=== PATIENT | female | born 1990 | race African-American/Black ===

== ENCOUNTER → 2019-05-23 | Emergency (ER) | payer MEDICAID ==
[~2019-05-23] VITALS: Ht 172.7 cm; Wt 71.2 kg
[~2019-05-23] MED LIST: Acetaminophen 500mg (ES) tab ORAL ONE; IBUPROFEN600 MG ORAL; LIDODERM700 M1 TOPIC; ROBAXIN-750750 MG PO; TYLENOL325 MG ORAL
[2019-05-23 13:50] VITALS: BP 112/72
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
[2019-05-23 14:10] VITALS: BP 112/72
--- NOTE | 2019-05-23 14:10 | NUR ---
ER DISCHARGE NOTE: Patient is cleared to be discharged per ERMD, pt is aox4, on room air, with stable vital signs. pt was given dc and prescription instructions, pt was able to verbalize understanding, pt id band removed. pt is able to ambulate with steady gait. pt took all belongings.
== END | disposition home or self-care (01) ==
LOC: EMR 13:50
DX: S30.0XXA Contusion of lower back and pelvis, initial encounter (principal); V49.40XA Driver injured in collision with unspecified motor vehicles in traffic accident, initial encounter; Y92.411 Interstate highway as the place of occurrence of the external cause
CPT/HCPCS: 99283

== ENCOUNTER 2020-01-20 15:35 | Emergency (ER) | payer MEDICAID ==
[~2020-01-20] VITALS: Ht 172.7 cm; Wt 72.6 kg
[~2020-01-20 15:35] MED LIST changes: -Acetaminophen 500mg (ES) tab ORAL ONE
[2020-01-20 16:15] VITALS: BP 115/74
--- NOTE | 2020-01-20 16:15 | NUR ---
ED Nurse Note: PT walked in to ed for c/o having more than 1 period a month. "12/10-12/16, -01/04, 01/15- currently on period". pt denies any use of control at this time.
[2020-01-20 16:56] LABS: APPEARANCE,URINE SLIGHTLY CLOUDY; BILIRUBIN, URINE NEGATIVE (NEGATIVE); COLOR,URINE PALE YELLOW; GLUCOSE, URINE (UA) NEGATIVE (NEGATIVE); KETONES,URINE NEGATIVE (NEGATIVE); LEUKOCYTE ESTERASE ,URINE NEGATIVE (NEGATIVE); NITRITE,URINE NEGATIVE (NEGATIVE); PH,URINE 8 (4.5-8.0); PROTEIN,URINE NEGATIVE (NEGATIVE); UROBILINOGEN,URINE NORMAL MG/DL (0.0-1.0)
[2020-01-20 17:17] LABS: BASOPHILS % (AUTO) 0.9 % (0.0-2.0); EOSINOPHILS % (AUTO) 1.5 % (0.0-3.0); HEMATOCRIT 44.1 % (37.0-47.0); HEMOGLOBIN 14.5 G/DL (12.0-16.0); LYMPHOCYTES % (AUTO) 27.9 % (20.0-45.0); MEAN CORPUSCULAR VOLUME 94 FL (80-99); MONOCYTES % (AUTO) 6.1 % (1.0-10.0); NEUTROPHILS % (AUTO) 63.6 % (45.0-75.0); PLATELET COUNT 203 K/UL (150-450); RED BLOOD COUNT 4.68 M/UL (4.20-5.40); WHITE BLOOD COUNT 7.9 K/UL (4.8-10.8)
[2020-01-20 17:22] LABS: CALCIUM 9.2 MG/DL (8.5-10.1); CREATININE 1.4 MG/DL (0.55-1.30); POTASSIUM 4.1 MMOL/L (3.5-5.1)
[2020-01-20 17:28] LABS: ALBUMIN 4.3 G/DL (3.4-5.0); ALBUMIN/GLOBULIN RATIO 1.3 (1.0-2.7); BILIRUBIN,TOTAL 0.5 MG/DL (0.2-1.0)
--- NOTE | 2020-01-20 17:28 | NUR ---
ED Nurse Note: pt taken to have ultrasound accompanied by radiography technician.
--- NOTE | 2020-01-20 18:17 | NUR ---
ED Nurse Note: PT returned back from US in stable condition.
--- NOTE | 2020-01-20 18:22 | Emergency Room Report ---
History of Present Illness General Chief Complaint: General Complaint Source: Patient Present Illness HPI 29-year-old female with no significant past medical history here complaining of 2 months dysfunctional uterine bleeding. Patient reports that her menstruation have been coming every week since beginning of November. Patient reports that she was going to infertility clinic as she is trying to get . Patient has taken a test at home and has been tested negative denies any tobacco smoke, drug use, alcohol intake. Denies any past medical history. Denies any shortness of breath, lightheadedness, chest pain. Reports that she has also been clotting. Denies history of ovarian cyst and uterine fibroids. Denies vaginal trauma. Allergies: Coded Allergies: No Known Allergies (Unverified , 05/23/19) COVID-19 Screening Contact w/high risk pt: No Experienced COVID-19 symptoms?: No COVID-19 Testing performed RADIATOR TESTER: Yes - 2 weeks ago COVID-19 Screening: Negative COVID-19 COVID-19 Testing Source: RECORDER OF DEEDS Patient History Past Medical History: see triage record Past Surgical History: none Pertinent Family History: none Last Menstrual Period: on period Now: No Immunizations: UTD Reviewed Nursing Documentation: PMH: Agreed; PSxH: Agreed Nursing Documentation-PMH Past Medical History: No Stated History Review of Systems All Other Systems: negative except mentioned in HPI Physical Exam Vital Signs Date Time Temp Pulse Resp B/P (MAP) Pulse Ox O2 Delivery O2 Flow Rate FiO2 01/20/20 16:06 98.4 62 14 115/74 (88) 99 Room Air Sp02 EP Interpretation: reviewed, normal General Appearance: no apparent distress, alert, GCS 15, non-toxic Head: normocephalic, atraumatic Eyes: bilateral eye normal inspection, bilateral eye PERRL ENT: hearing grossly normal, normal pharynx, no angioedema, normal voice Neck: full range of motion, supple/symm/no masses Respiratory: chest non-tender, lungs clear, normal breath sounds, speaking full sentences Cardiovascular #1: regular rate, rhythm, no edema Cardiovascular #2: 2+ carotid (R), 2+ carotid (L), 2+ radial (R), 2+ radial (L), 2+ dorsalis pedis (R), 2+ dorsalis pedis (L) Gastrointestinal: normal bowel sounds, non tender, soft, no bruit, non- distended, no guarding, no rebound Rectal: deferred Genitourinary: no CVA tenderness Musculoskeletal: back normal, no calf tenderness Neurologic: alert, motor strength/tone normal, oriented x3, sensory intact, responsive, speech normal Psychiatric: judgement/insight normal, memory normal, mood/affect normal, no suicidal/homicidal ideation Skin: no rash Lymphatic: no adenopathy Medical Decision Making PA Attestation All my diagnosis and treatment plans were reviewed ad discussed with my supervising physician Dr. Lugo Diagnostic Impression: Primary Impression: Ovarian cyst Additional Impression: DUB (dysfunctional uterine bleeding) ER Course 29-year-old female with no significant past medical history here complaining of 2 months dysfunctional uterine bleeding. Patient reports that her menstruation have been coming every week since beginning of November. Patient reports that she was going to infertility clinic as she is trying to get . Patient has taken a test at home and has been tested negative denies any tobacco smoke, drug use, alcohol intake. Denies any past medical history. Denies any shortness of breath, lightheadedness, chest pain. Reports that she has also been clotting. Denies history of ovarian cyst and uterine fibroids. Denies vaginal trauma. Patient reports that she only has 1 kidney and renal function is within normal limits. Ddx considered but are not limited to: UTI, pyelonephritis, urinary incontinence, prolapsed bladder, dysfunctional uterine bleeding, ovarian cyst, uterine fibroids, ectopic Vital signs: are WNL, pt. is afebrile H&PE are most consistent with: Ovarian cyst, dysfunctional uterine bleeding, ORDERS: UA, urine cx, urine test, CBC, CMP, pelvic ultrasound, ED INTERVENTIONS: None required at this time. Patient developing medication in house DISCHARGE: At this time pt. is stable for d/c to home. Will provide printed patient care instructions, and any necessary prescriptions. Care plan and follow up instructions have been discussed with the patient prior to discharge. 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 The endometrium is suboptimally visualized suggested to measure 3.4 mm. There are multiple nabothian cysts. No myometrial mass. Right ovary: The right ovary measures 4.1 x 4.0 x 2.1 cm. Multiple simple cysts within the right ovary largest measuring 2.1 x 1.1 cm. There is free fluid near the right ovary. Normal blood flow. Left ovary: The left ovary measures 3.8 x 3.3 x 2.2 cm. Nonspecific follicular cysts within the left ovary. Normal blood flow. Free fluid: See above. Bladder: Unremarkable as visualized. Wall is normal thickness for degree of distention. IMPRESSION: Nonspecific simple ovarian cysts as described above. 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
[2020-01-20 18:30] VITALS: BP 120/80
--- NOTE | 2020-01-20 18:30 | NUR ---
ER DISCHARGE NOTE: Patient is cleared to be discharged per ERMD, pt is aox4, on room air, with stable vital signs. pt was given dc instructions, pt was able to verbalize understanding, pt id band removed without complications. pt is able to ambulate with steady gait. pt took all belongings.
--- NOTE | 2020-01-20 19:22 | Diagnostic Imaging Report ---
EXAM: US Pelvis Transabdominal, Complete CLINICAL HISTORY: PAIN TECHNIQUE: Real-time complete transabdominal pelvic ultrasound with image documentation. COMPARISON: None. FINDINGS: Uterus/cervix: The uterus measures 7.3 x 4.6 x 3.7 cm. The endometrium is suboptimally visualized suggested to measure 3.4 mm. There are multiple nabothian cysts. No myometrial mass. Right ovary: The right ovary measures 4.1 x 4.0 x 2.1 cm. Multiple simple cysts within the right ovary largest measuring 2.1 x 1.1 cm. There is free fluid near the right ovary. Normal blood flow. Left ovary: The left ovary measures 3.8 x 3.3 x 2.2 cm. Nonspecific follicular cysts within the left ovary. Normal blood flow. Free fluid: See above. Bladder: Unremarkable as visualized. Wall is normal thickness for degree of distention. IMPRESSION: Nonspecific simple ovarian cysts as described above. Remainder of the pelvic ultrasound unremarkable.
== END 2020-01-20 18:30 | disposition home or self-care (01) ==
LOC: EMR 16:30
DX: N83.201 Unspecified ovarian cyst, right side (principal); N83.02 Follicular cyst of left ovary
CPT/HCPCS: 36415; 76830; 76856; 80053; 81003; 81025; 84703; 85025; Z7502; 99284